=== PATIENT | female | born 1985 | race African-American/Black ===

== ENCOUNTER 2021-10-01 22:45 | Emergency (ER) | payer MEDICAID ==
[~2021-10-01] VITALS: Ht 165.1 cm; Wt 91.0 kg
[2021-10-02] MEDS ORDERED: METOCLOPRAMIDE HCL 10MG/2ML VIAL IM STA (00:01)
[2021-10-02] MEDS ORDERED: KETOROLAC 60MG/2ML VIAL IM STA (00:01)
[2021-10-02 02:45] LABS: CLARITY URINE CLOUDY (CLEAR); COLOR URINE DARK YELLOW (YELLOW); KETONES URINE TRACE (NEGATIVE); LEUKOCYTE ESTERASE URINE 3+ (NEGATIVE); NITRITE URINE NEGATIVE (NEGATIVE); OCCULT BLOOD URINE TRACE (NEGATIVE); PROTEIN URINE TRACE (NEGATIVE); SPECIFIC GRAVITY URINE 1.022 (1.005-1.030)
[2021-10-02] MEDS ORDERED: NAPR-681 PO (03:05)
[2021-10-02] MEDS ORDERED: ONDA4TAB5 PO (03:05)
[2021-10-02] MEDS ORDERED: SULF1TAB48 PO (03:05)
[2021-10-02 03:53] VITALS: BP 130/76
== END 2021-10-02 03:55 | disposition home or self-care (01) ==
LOC: ER 22:45
DX: R51.9 Headache, unspecified (principal); N39.0 Urinary tract infection, site not specified; F43.10 Post-traumatic stress disorder, unspecified; F41.9 Anxiety disorder, unspecified
CPT/HCPCS: 81003; 81025; 87086; 96372; 99284; J1885; J2765